=== PATIENT | female | born 2000 | race Caucasian/White ===

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

== ENCOUNTER 2019-04-01 23:47 | Emergency (ER) | payer MEDICAID ==
[~2019-04-01 23:47] MED LIST: AZITHROMYCIN500 M2 PO; DESYREL 50MG50 MG PO; FLAGYL500 M1 PO; WELLBUTRIN 75MG75 MG PO
[2019-04-02 00:45] LABS: EOS % 0.5 % (0.1-4.0); HEMATOCRIT 34.7 % (35.0-45.0); HEMOGLOBIN 11.8 g/dL (12.0-15.0); MEAN CELL VOLUME 92 fl (78-95); MEAN CORPUSCULAR HEMOGLOBIN 31 pg (26-32); MEAN CORPUSCULAR HGB CONC 34 g/dL (33-37); MEAN PLATELET VOLUME 9.7 fl (7.4-10.4); MONO # 0.7 (0.10-0.60); NEU # 5.7 (1.40-6.50); PLATELET COUNT 241 K/mm3 (130-400); RED BLOOD COUNT 3.79 M/mm3 (4.10-5.30); RED CELL DISTRIBUTION WIDTH 12.9 % (11.5-14.5); WHITE BLOOD COUNT 8.5 K/mm3 (4.8-10.8)
[2019-04-02 00:48] LABS: ALBUMIN 3.5 g/dL (3.5-5.0)
[2019-04-02 00:49] LABS: POTASSIUM 3.6 mmol/L (3.5-5.1)
[2019-04-02 00:50] LABS: CALCIUM 8.6 mg/dL (8.3-10.5)
[2019-04-02 00:51] LABS: TOTAL PROTEIN 6.8 g/dL (6.4-8.3)
[2019-04-02 00:53] LABS: TOTAL BILIRUBIN 0.5 mg/dL (0.2-1.2)
[2019-04-02 00:59] LABS: PH-URINE 6.5 (5.0 - 8.0); URINE APPEARANCE CLOUDY; URINE BILIRUBIN NEGATIVE (NEGATIVE); URINE BLOOD NEGATIVE (NEGATIVE); URINE COLOR YELLOW; URINE GLUCOSE NEGATIVE (NEGATIVE); URINE KETONE NEGATIVE (NEGATIVE); URINE LEUKOCYTE ESTERASE 2+ (NEGATIVE); URINE NITRATE NEGATIVE (NEGATIVE); URINE PROTEIN(semi-quant) TRACE mg/dL (NEGATIVE); URINE UROBILINOGEN 4 mg/dL (NORMAL)
[2019-04-02 01:01] LABS: URINE WBC 16-30 /hpf (0-3)
[2019-04-02] MEDS ORDERED: AUGMENTIN 875-1 EAC1 PO (02:42)
== END 2019-04-02 02:48 | disposition left against medical advice (07) ==
LOC: ED 23:47
PROVIDERS: Nurse Practitioner Family
DX: O23.11 Infections of bladder in pregnancy, first trimester (principal); O99.341 Other mental disorders complicating pregnancy, first trimester; F32.9 Major depressive disorder, single episode, unspecified; G47.00 Insomnia, unspecified; Z90.49 Acquired absence of other specified parts of digestive tract; Z90.89 Acquired absence of other organs; Z3A.12 12 weeks gestation of pregnancy